=== PATIENT | female | born 1995 | race African-American/Black ===

== ENCOUNTER 2017-07-20 17:11 | Emergency (ER) | payer SELFPAY ==
[~2017-07-20] VITALS: Ht 160 cm; Wt 67.1 kg
--- NOTE | 2017-07-20 18:12 | PHYS DOC ---
Past Medical History Past Medical History: Hypertension Past Surgical History: No Surgical History Alcohol Use: Occasionally Drug Use: None Adult General Chief Complaint Chief Complaint: CHEST PAIN HPI HPI Patient is a 21 year old female who presents with complaint of intermittent chest pain and dizziness. Patient states that she has been having symptoms over the past week. The patient states that she has history of hypertension and has been on nifedipine extended release medication for treatment. Patient states that she had a lapse in her treatment for approximately 1 week, however she was able to restart her medication approximately 4 days ago. Patient states that since starting her medication, she has been getting chest pains as well as lightheadedness. Patient denies any syncopal episodes. Patient states that she took her blood pressure at home and found it to be 110/50 which she was concerned may be low. Patient states that this has been giving her anxiety which has seemed to worsen her symptoms. The patient states that she stopped taking the medication again over the last 36 hours but states that she has had residual lightheadedness and chest pain. Patient denies any significant heart history. Patient has had no associated fever or shortness of breath with her symptoms. Review of Systems Review of Systems Constitutional: Lightheadedness, denies fever or chills[] Eyes: Denies change in visual acuity, redness, or eye pain [] HENT: Denies nasal congestion or sore throat [] Respiratory: Denies cough or shortness of breath [] Cardiovascular: Chest pain[] GI: Denies abdominal pain, nausea, vomiting, bloody stools or diarrhea [] : Denies dysuria or hematuria [] Musculoskeletal: Denies back pain or joint pain [] Integument: Denies rash or skin lesions [] Neurologic: Denies headache, focal weakness or sensory changes [] All other systems were reviewed and found to be within normal limits, except as documented in this note. Allergies Allergies Allergies Coded Allergies Type Severity Reaction Last Updated Verified No Known Drug Allergies 06/29/16 No Physical Exam Physical Exam Constitutional: Well developed, well nourished, no acute distress, non-toxic appearance. [] HENT: Normocephalic, atraumatic, bilateral external ears normal, oropharynx moist, no oral exudates, nose normal. [] Eyes: PERRLA, EOMI, conjunctiva normal, no discharge. [] Neck: Normal range of motion, no tenderness, supple, no stridor. [] Cardiovascular:Heart rate regular rhythm, no murmur [] Lungs & Thorax: Bilateral breath sounds clear to auscultation [] Abdomen: Bowel sounds normal, soft, no tenderness, no masses, no pulsatile masses. [] Skin: Warm, dry, no erythema, no rash. [] Back: No tenderness, no CVA tenderness. [] Extremities: No tenderness, no cyanosis, no clubbing, ROM intact, no edema. [] Neurologic: Alert and oriented X 3, normal motor function, normal sensory function, no focal deficits noted. [] Current Patient Data Vital Signs Vital Signs Date Time Temp Pulse Resp B/P (MAP) Pulse Ox O2 Delivery O2 Flow Rate FiO2 07/20/17 18:44 84 16 134/73 (93) 98 Room Air 07/20/17 17:15 97.5 97.5 Lab Values Laboratory Tests Test 07/20/17 18:08 POC Urine HCG, Qualitative Hcg negative (Negative) EKG EKG Interpreted by me: Heart rate 75, sinus rhythm, normal intervals, normal axis, no acute ST/T-wave abnormalities present[] Radiology/Procedures Radiology/Procedures Two-view chest x-ray interpreted by me: No infiltrates, no effusions, normal cardiac silhouette Course & Med Decision Making Course & Med Decision Making Pertinent Labs and Imaging studies reviewed. (See chart for details) Vital signs including blood pressure appears normal at this time. The patient's EKG and chest x-ray show no evidence of acute cardiopulmonary abnormality. The patient's risk for acute coronary syndrome is very low given age. Patient also does not meet Wells criteria for DVT or PE. The patient will be discharged and advised to continue with oral hydration. Recommended close follow-up with the patient's primary doctor in the next 3-5 days for reevaluation and discuss other potential treatment options for blood pressure. Advised return emergency department for any worsening symptoms. Patient voiced understanding and in agreement with treatment plan. Dragon Disclaimer Dragon Disclaimer This electronic medical record was generated, in whole or in part, using a voice recognition dictation system. Departure Departure Impression: Primary Impression: Atypical chest pain Disposition: 01 HOME, SELF-CARE Condition: GOOD Referrals: NON,STAFF (PCP) Patient Instructions: Chest Pain (Nonspecific) Additional Instructions: Follow-up with your primary doctor in 3-5 days for reevaluation. Return to the emergency department for any worsening symptoms. KAYCE LOTT MD Jul 20, 2017 18:12
--- NOTE | 2017-07-20 18:15 | EKG ---
[facility] [address] [place] [address] Test Date: 2017-07-20 Test Time: 17:23:57 Pat Name: JEIMY DAWKINS Department: Room: Gender: F [employer]: : 1995 Requested By: KAYCE LOTT Order Number: [id number] Reading MD: Measurements Intervals [place] Rate: 75 P: 24 MS: 166 QRS: 49 QRSD: 84 T: 32 QT: 398 QTc: 447 Interpretive Statements SINUS RHYTHM NO SPECIFIC ECG ABNORMALITIES RI6.01 No previous ECG available for comparison
[2017-07-20 19:08] VITALS: BP 110/79
--- NOTE | 2017-07-21 08:09 | RAD ---
Two view chest History:chest pain, chest pain for 3 days. PA and lateral views of the chest are submitted. Comparison: 03/17/2010 Findings: There is no significant infiltrate, pleural effusion, or pneumothorax. The pericardial cardiac silhouette is within normal limits in size. The trachea is in the midline. No acute osseous abnormality is identified. Impression: There is no evidence of acute cardiopulmonary disease.
== END 2017-07-20 19:09 | disposition home or self-care (01) ==
LOC: ER 17:11
DX: R07.89 Other chest pain (principal); R42 Dizziness and giddiness; I10 Essential (primary) hypertension
CPT/HCPCS: 71020; 81025; 93005; 99284-25